=== PATIENT | female | born 1960 | race Caucasian/White ===

== ENCOUNTER 2017-12-10 18:31 | Inpatient (IN) ==
[2017-12-10] MEDS ORDERED: ONDANSETRON 4 MG/2 ML VIAL ONE (19:24)
[2017-12-10] MEDS ORDERED: ASPIRIN 325 MG TABLET PO STA (19:39)
[2017-12-10] MEDS ORDERED: SODIUM CHLORIDE 0.9% 500 ML IV STA (19:39)
[2017-12-10] MEDS ORDERED: ASPIRIN 325 MG TABLET ONE (19:47)
[2017-12-10 19:49] LABS: Basophils # 0.2 10*3/uL (0.0-0.2); Basophils % 0.8 % (0.0-0.8); Eosinophils # 1.3 10*3/uL (0.0-0.87); Eosinophils % 7.3 % (0.00-10.9); Hematocrit 42.7 VOL% (35.7-47.0); Hemoglobin 13.7 GM/DL (12.0-16.0); Immature Granulocytes % 0.6 %; Immature Granulocytes Absolute 0.11 #; Lymphocytes # 6.8 10*3/uL (1.4-4.0); Lymphocytes % 38.3 % (21.3-54.2); Mean Corpuscular HGB Conc 32.1 GM/DL (32-36); Mean Corpuscular Hemoglobin 29 PG (27-34); Mean Corpuscular Volume 88.8 FL (87-102); Mean Platelet Volume 11.4 FL (9.6-12.0); Monocytes # 1.1 10*3/uL (0.11-0.8); Monocytes % 6.2 % (1.7-12.7); Neutrophils # 8.3 10*3/uL (1.4-7.4); Neutrophils % 46.8 % (38.7-73.9); Platelet Count 324 T/CUMM (130-400); Red Blood Count 4.81 MC/CUMM (3.8-5.5); Red Cell Distribution Width 14.1 % (9.3-17.3); White Blood Count 17.7 T/CUMM (4-12)
[2017-12-10 19:55] LABS: Partial Thromboplastin Time 23.1 SECS (0-40)
[2017-12-10] MEDS ORDERED: ONDANSETRON 4 MG/2 ML VIAL IV STA (19:55)
[2017-12-10 20:07] LABS: Alanine Aminotransferase 12 U/L (13-56); Alkaline Phosphatase 101 U/L (45-117); Aspartate Amino Transferase 26 U/L (0-37); Bilirubin,Total < 0.39 MG/DL (0.2-1.0); Blood Urea Nitrogen 21 MG/DL (7-18); Calcium 9.5 MG/DL (8.5-10.1); Glucose 131 MG/DL (74-106); Osmolality,Calculated 290.8 MOS/KG (273-304); Potassium 3.5 MMOL/L (3.5-5.1); Sodium 144 MMOL/L (136-145); Total Protein 7.6 G/DL (6.4-8.3)
[2017-12-10 20:09] LABS: Troponin I Only 0.072 NG/ML (0.00-0.045)
[2017-12-10] MEDS ORDERED: LABETALOL 20 MG/4 ML SYRINGE IV PRN (21:15)
[2017-12-10] MEDS ORDERED: DEXTROSE 50% 25 GM/50 ML VIAL IV PRN (21:15)
[2017-12-10] MEDS ORDERED: GLUCAGON 1 MG VIAL IM PRN (21:15)
[2017-12-10] MEDS ORDERED: ENOXAPARIN 40 MG/0.4 ML SYRINGE SUBCUT SCH (21:30)
[2017-12-10 21:54] LABS: Apearance,Urine CLEAR (Clear); Bilirubin,Urine Negative (Negative); Blood, Urine Negative (Negative); Glucose,Urine (UA) >=500 mg/dL (Negative); Hyaline Casts,Urine 1 /LPF (0-3); Ketones,Urine 20 mg/dL (Negative); Mucus,Urine Occasional /LPF (Occasional); Nitrite,Urine Negative (Negative); Protein,Urine Negative; RBC,Urine 1 /HPF (0-4); Squamous Epithelial Cell,Urine Occasional /HPF (0-10); Urine Color Yellow (Yellow); Urine Specific Gravity 1.013 (1.001-1.035); Urine Urobilinogen < 2.0 EU/DL (0.2-1.0); WBC,Urine 3 /HPF (0-6)
[2017-12-10 22:01] LABS: Barbiturates Screen,Urine Negative (Negative); Benzodiazepines Screen,Urine Negative (Negative); Cannabinoid Screen,Urine Negative (Negative); Opiate Screen,Urine Negative (Negative); Phencyclidine Screen,Urine Negative (Negative)
[2017-12-10] MEDS: SODIUM CHLORIDE 0.9% 1,000 ML IV SCH (23:48)
[2017-12-11] MEDS: ACETAMINOPHEN 325 MG TABLET PO PRN ×4 (00:46→14:53)
[2017-12-11 05:11] LABS: Basophils # 0.1 10*3/uL (0.0-0.2); Basophils % 0.5 % (0.0-0.8); Eosinophils # 0.1 10*3/uL (0.0-0.87); Eosinophils % 0.4 % (0.00-10.9); Hemoglobin 12.6 GM/DL (12.0-16.0); Immature Granulocytes % 0.6 %; Immature Granulocytes Absolute 0.08 #; Lymphocytes # 2.2 10*3/uL (1.4-4.0); Lymphocytes % 17.3 % (21.3-54.2); Mean Corpuscular HGB Conc 32.3 GM/DL (32-36); Mean Corpuscular Hemoglobin 29 PG (27-34); Mean Corpuscular Volume 88.4 FL (87-102); Mean Platelet Volume 11.4 FL (9.6-12.0); Monocytes # 0.6 10*3/uL (0.11-0.8); Monocytes % 4.3 % (1.7-12.7); Neutrophils # 9.8 10*3/uL (1.4-7.4); Neutrophils % 76.9 % (38.7-73.9); Platelet Count 252 T/CUMM (130-400); Red Blood Count 4.41 MC/CUMM (3.8-5.5); Red Cell Distribution Width 13.8 % (9.3-17.3); White Blood Count 12.7 T/CUMM (4-12)
[2017-12-11 06:00] LABS: Calcium 9.1 MG/DL (8.5-10.1); Potassium 4.2 MMOL/L (3.5-5.1)
[2017-12-11 06:22] LABS: Risk Ratio 4.71; VLDL CHOLESTEROL 13.2 MG/DL
[2017-12-11] MEDS: INSULIN REGULAR 100 UNIT/ML SUBCUT SCH ×4 (08:23→20:13)
[2017-12-11] MEDS: ASPIRIN 325 MG TABLET PO SCH (09:56)
[2017-12-11] MEDS ORDERED: ONDANSETRON 4 MG/2 ML VIAL IV ONE (12:44)
[2017-12-11] MEDS: INSULIN GLARGINE 100 UNIT/ML SUBCUT SCH (14:48)
[2017-12-11] MEDS: SODIUM CHLORIDE 0.9% 1,000 ML IV SCH (20:12)
[2017-12-11] MEDS ORDERED: CYCLOBENZAPRINE 10 MG TABLET PO SCH (21:00)
[2017-12-11] MEDS ORDERED: MONTELUKAST 10 MG TABLET PO SCH (21:00)
[2017-12-11] MEDS ORDERED: ESCITALOPRAM 10 MG TABLET PO SCH (21:00)
[2017-12-12] MEDS ORDERED: ONDANSETRON 4 MG/2 ML VIAL IV PRN (03:25)
[2017-12-12] MEDS ORDERED: LEVOTHYROXINE 112 MCG TABLET PO SCH (06:30)
[2017-12-12] MEDS: INSULIN REGULAR 100 UNIT/ML SUBCUT SCH ×3 (08:04→16:33)
[2017-12-12] MEDS ORDERED: CLOPIDOGREL 75 MG TABLET PO SCH (09:00)
[2017-12-12] MEDS ORDERED: ATORVASTATIN 40 MG TABLET PO SCH (09:00)
[2017-12-12] MEDS ORDERED: TISSUE ADHESIVE 1 EACH APPLICATOR TOP ONE (09:17)
[2017-12-12] MEDS ORDERED: LIDOCAINE 1%/EPI INJ 20 ML VIAL ONE (09:17)
[2017-12-12] MEDS ORDERED: MIDAZOLAM 2 MG/2 ML VIAL IV ONE (10:45)
[2017-12-12] MEDS ORDERED: fentaNYL 100 MCG/2 ML VIAL ONE (10:45)
[2017-12-12] MEDS ORDERED: MIDAZOLAM 10 MG/2 ML VIAL ONE (10:45)
[2017-12-12] MEDS ORDERED: fentaNYL 100 MCG/2 ML VIAL IV ONE (10:45)
[2017-12-12] MEDS ORDERED: LIDOCAINE 1%/EPI INJ 20 ML VIAL MISC INJ ONE (10:55)
[2017-12-12] MEDS: ASPIRIN 325 MG TABLET PO SCH (12:47)
[2017-12-12] MEDS: INSULIN GLARGINE 100 UNIT/ML SUBCUT SCH (12:47)
[2017-12-12] MEDS ORDERED: DEXTROSE 50% 25 GM/50 ML VIAL IV PRN (15:08)
[2017-12-12] MEDS ORDERED: GLUCAGON 1 MG VIAL IM PRN (15:08)
[2017-12-12 16:33] VITALS: BP 110/66
== END 2017-12-12 17:29 | disposition home or self-care (01) | DRG 41 ==
LOC: N.ED 18:31 → N.EDINP 21:15 → N.2E 21:45
PROVIDERS: ADMIT Internal Medicine; ATTEND Internal Medicine

== ENCOUNTER 2020-01-18 12:48 | Inpatient (IN) ==
[2020-01-18] MEDS ORDERED: SODIUM CHLORIDE 0.9% 1,000 ML IV STA (13:25)
[2020-01-18] MEDS ORDERED: ONDANSETRON 4 MG/2 ML VIAL IV ONE (13:25)
[2020-01-18] MEDS ORDERED: PANTOPRAZOLE 40 MG VIAL IV STA (13:26)
[2020-01-18 13:35] LABS: Apearance,Urine CLEAR (Clear); Basophils % 0.3 % (0.0-0.8); Bilirubin,Urine Negative (Negative); Blood, Urine Negative (Negative); Eosinophils % 0.1 % (0.00-10.9); Glucose,Urine (UA) Negative (Negative); Hematocrit 23.7 VOL% (35.7-47.0); Hemoglobin 7.4 GM/DL (12.0-16.0); Immature Granulocytes % 0.6 %; Immature Granulocytes Absolute 0.07 #; Ketones,Urine 5 mg/dL (Negative); Lymphocytes # 2.2 10*3/uL (1.4-4.0); Lymphocytes % 18.6 % (21.3-54.2); Mean Corpuscular HGB Conc 31.2 GM/DL (32-36); Mean Corpuscular Volume 89.4 FL (87-102); Mean Platelet Volume 11.6 FL (9.6-12.0); Monocytes % 6.9 % (1.7-12.7); Mucus,Urine Occasional /LPF (Occasional); Neutrophils % 73.5 % (38.7-73.9); Nitrite,Urine Negative (Negative); Platelet Count 264 T/CUMM (130-400); Protein,Urine Negative; Red Blood Count 2.65 MC/CUMM (3.8-5.5); Red Cell Distribution Width 13.6 % (9.3-17.3); Squamous Epithelial Cell,Urine Occasional /HPF (0-10); Urine Color Yellow (Yellow); Urine Urobilinogen < 2.0 EU/DL (0.2-1.0); White Blood Count 11.7 T/CUMM (4-12)
[2020-01-18 13:47] LABS: INR 1.2; PT Patient Result 12.3 SECS (9.8-11.9)
[2020-01-18 13:57] LABS: Alanine Aminotransferase 13 U/L (13-56); Albumin 2.7 G/DL (3.4-5.0); Alkaline Phosphatase 76 U/L (45-117); Aspartate Amino Transferase 12 U/L (0-37); Bilirubin,Total < 0.39 MG/DL (0.2-1.0); Blood Urea Nitrogen 65 MG/DL (7-18); Calcium 7.9 MG/DL (8.5-10.1); Estimated Glom Filtration Rate 63 ML/MIN; Glucose 333 MG/DL (74-106); Osmolality,Calculated 312.3 MOS/KG (273-304); Total Protein 5.1 G/DL (6.4-8.3)
[2020-01-18] MEDS ORDERED: PANTOPRAZOLE INJ 200 MG in SODIUM CHLORIDE 0.9% 250 ML IV SCH (14:30)
[2020-01-18] MEDS ORDERED: SODIUM CHLORIDE 0.9% 1,000 ML IV PRN (14:49)
[2020-01-18] MEDS ORDERED: ONDANSETRON 4 MG/2 ML VIAL IV PRN (15:37)
[2020-01-18] MEDS ORDERED: PROMETHAZINE 25 MG/1 ML VIAL IM PRN (15:37)
[2020-01-18] MEDS: SODIUM CHLORIDE 0.9% 1,000 ML IV SCH (17:08)
[2020-01-18] MEDS ORDERED: PHENYLEPHRINE DRIP 40 MG/250 ML PREMIX IV PRN (17:09)
[2020-01-18] MEDS: INSULIN LISPRO 100 UNIT/ML SUBCUT SCH (20:16)
[2020-01-18] MEDS: DOCUSATE SODIUM 100 MG CAPSULE PO SCH (20:16)
[2020-01-18] MEDS: MONTELUKAST 10 MG TABLET PO SCH (20:16)
[2020-01-19 01:08] LABS: Basophils # 0.1 10*3/uL (0.0-0.2); Basophils % 0.3 % (0.0-0.8); Eosinophils % 0.1 % (0.00-10.9); Hematocrit 30.1 VOL% (35.7-47.0); Hemoglobin 9.9 GM/DL (12.0-16.0); Immature Granulocytes % 0.5 %; Immature Granulocytes Absolute 0.08 #; Lymphocytes # 2.8 10*3/uL (1.4-4.0); Lymphocytes % 15.5 % (21.3-54.2); Mean Corpuscular HGB Conc 32.9 GM/DL (32-36); Mean Platelet Volume 11.3 FL (9.6-12.0); Monocytes % 8.8 % (1.7-12.7); NRBC # 0.02 10*3/uL; Neutrophils % 74.8 % (38.7-73.9); Platelet Count 208 T/CUMM (130-400); Red Blood Count 3.46 MC/CUMM (3.8-5.5); Red Cell Distribution Width 14.1 % (9.3-17.3); White Blood Count 17.8 T/CUMM (4-12)
[2020-01-19 01:33] LABS: Albumin 2.9 G/DL (3.4-5.0); Bilirubin,Total 0.4 MG/DL (0.2-1.0); Calcium 8.3 MG/DL (8.5-10.1); Osmolality,Calculated 303.6 MOS/KG (273-304); Total Protein 5.4 G/DL (6.4-8.3)
[2020-01-19 01:39] LABS: Risk Ratio 3.28; Thyroid Stimulating Hormone 0.118 uIU/ml (0.358-3.74); VLDL CHOLESTEROL 20.2 MG/DL
[2020-01-19] MEDS: SODIUM CHLORIDE 0.9% 1,000 ML IV SCH ×4 (03:29→19:50)
[2020-01-19] MEDS: ATORVASTATIN 40 MG TABLET PO SCH (08:13)
[2020-01-19] MEDS: FLUoxetine 20 MG CAPSULE PO SCH (08:13)
[2020-01-19] MEDS: buPROPion XL 150 MG TABLET PO SCH (08:13)
[2020-01-19] MEDS: LEVOTHYROXINE 100 MCG TABLET PO SCH (08:13)
[2020-01-19] MEDS: DOCUSATE SODIUM 100 MG CAPSULE PO SCH ×2 (08:13→21:06)
[2020-01-19] MEDS: INSULIN LISPRO 100 UNIT/ML SUBCUT SCH ×4 (08:13→21:10)
[2020-01-19] MEDS ORDERED: PANTOPRAZOLE 40 MG TABLET PO SCH (09:00)
[2020-01-19] MEDS: PANTOPRAZOLE 40 MG TABLET PO SCH (21:06)
[2020-01-19] MEDS: ACETAMINOPHEN 325 MG TABLET PO PRN (21:06)
[2020-01-19] MEDS: MONTELUKAST 10 MG TABLET PO SCH (21:06)
[2020-01-20] MEDS: SODIUM CHLORIDE 0.9% 1,000 ML IV SCH ×3 (03:34→16:34)
[2020-01-20 05:55] LABS: Albumin 2.5 G/DL (3.4-5.0); Bilirubin,Total 0.8 MG/DL (0.2-1.0); Calcium 7.9 MG/DL (8.5-10.1); Osmolality,Calculated 290.6 MOS/KG (273-304); Total Protein 4.8 G/DL (6.4-8.3)
[2020-01-20 06:56] LABS: Basophils % 0.4 % (0.0-0.8); Eosinophils # 0.4 10*3/uL (0.0-0.87); Eosinophils % 4.2 % (0.00-10.9); Hematocrit 23.8 VOL% (35.7-47.0); Immature Granulocytes % 0.6 %; Immature Granulocytes Absolute 0.05 #; Lymphocytes # 2.6 10*3/uL (1.4-4.0); Lymphocytes % 29.2 % (21.3-54.2); Mean Corpuscular HGB Conc 32.4 GM/DL (32-36); Mean Corpuscular Volume 90.2 FL (87-102); Mean Platelet Volume 11.3 FL (9.6-12.0); Monocytes % 8.7 % (1.7-12.7); Neutrophils % 56.9 % (38.7-73.9); Red Cell Distribution Width 14.6 % (9.3-17.3)
[2020-01-20 06:58] LABS: Hemoglobin 7.7 GM/DL (12.0-16.0); Platelet Count 153 T/CUMM (130-400); Red Blood Count 2.64 MC/CUMM (3.8-5.5)
[2020-01-20] MEDS: INSULIN LISPRO 100 UNIT/ML SUBCUT SCH ×4 (07:58→21:21)
[2020-01-20] MEDS: DOCUSATE SODIUM 100 MG CAPSULE PO SCH ×2 (08:03→21:21)
[2020-01-20] MEDS: ATORVASTATIN 40 MG TABLET PO SCH (08:03)
[2020-01-20] MEDS: buPROPion XL 150 MG TABLET PO SCH (08:04)
[2020-01-20] MEDS: LEVOTHYROXINE 100 MCG TABLET PO SCH (08:04)
[2020-01-20] MEDS: FLUoxetine 20 MG CAPSULE PO SCH (08:04)
[2020-01-20] MEDS: PANTOPRAZOLE 40 MG TABLET PO SCH ×2 (08:04→21:18)
[2020-01-20 13:23] LABS: Hematocrit 23.3 VOL% (35.7-47.0); Hemoglobin 7.7 GM/DL (12.0-16.0)
[2020-01-20] MEDS: MONTELUKAST 10 MG TABLET PO SCH (21:17)
[2020-01-20] MEDS: ACETAMINOPHEN 325 MG TABLET PO PRN (21:18)
[2020-01-21 05:07] LABS: Basophils % 0.4 % (0.0-0.8); Eosinophils # 0.3 10*3/uL (0.0-0.87); Eosinophils % 5.5 % (0.00-10.9); Hematocrit 24.5 VOL% (35.7-47.0); Immature Granulocytes % 0.4 %; Immature Granulocytes Absolute 0.02 #; Lymphocytes # 0.8 10*3/uL (1.4-4.0); Lymphocytes % 14.8 % (21.3-54.2); Mean Corpuscular HGB Conc 32.7 GM/DL (32-36); Mean Corpuscular Volume 86.9 FL (87-102); Mean Platelet Volume 11.4 FL (9.6-12.0); Monocytes % 11.1 % (1.7-12.7); NRBC # 0.02 10*3/uL; Neutrophils % 67.8 % (38.7-73.9); Platelet Count 139 T/CUMM (130-400); Red Blood Count 2.82 MC/CUMM (3.8-5.5); Red Cell Distribution Width 14.6 % (9.3-17.3); White Blood Count 5.1 T/CUMM (4-12)
[2020-01-21 05:36] LABS: Albumin 2.8 G/DL (3.4-5.0); Bilirubin,Total 0.7 MG/DL (0.2-1.0); Calcium 8.8 MG/DL (8.5-10.1); Osmolality,Calculated 283.8 MOS/KG (273-304); Total Protein 5.6 G/DL (6.4-8.3)
[2020-01-21] MEDS ORDERED: DEXTROSE 10% 250 ML BAG IV PRN (07:38)
[2020-01-21] MEDS ORDERED: GLUCAGON 1 MG VIAL IM PRN (07:38)
[2020-01-21] MEDS: INSULIN LISPRO 100 UNIT/ML SUBCUT SCH (07:46)
[2020-01-21 07:48] VITALS: BP 134/77
[2020-01-21] MEDS ORDERED: GLIMEPIRIDE 2 MG TABLET PO SCH (08:00)
[2020-01-21] MEDS: FLUoxetine 20 MG CAPSULE PO SCH (08:30)
[2020-01-21] MEDS: ATORVASTATIN 40 MG TABLET PO SCH (08:30)
[2020-01-21] MEDS: LEVOTHYROXINE 100 MCG TABLET PO SCH (08:30)
[2020-01-21] MEDS: buPROPion XL 150 MG TABLET PO SCH (08:30)
[2020-01-21] MEDS: PANTOPRAZOLE 40 MG TABLET PO SCH (08:31)
[2020-01-21] MEDS: DOCUSATE SODIUM 100 MG CAPSULE PO SCH (08:31)
[2020-01-21] MEDS ORDERED: POTASSIUM CHLORIDE 10 MEQ TABLET PO SCH (09:00)
[2020-01-21] MEDS ORDERED: atenoloL 25 MG TABLET PO SCH (09:00)
[2020-01-21] MEDS ORDERED: LIDOCAINE 2% 5 ML VIAL ONE (09:00)
[2020-01-21] MEDS ORDERED: metFORMIN 500 MG TABLET PO SCH (09:00)
[2020-01-21] MEDS ORDERED: propofoL 200 MG/20 ML VIAL IV ONE (09:00)
[2020-01-21] MEDS ORDERED: ESMOLOL 100 MG/10 ML VIAL IV ONE (09:00)
== END 2020-01-21 09:40 | disposition home or self-care (01) | DRG 378 ==
LOC: EDUNIT# → EDBD → N.ED 12:48 → N.EDINP 15:37 → N.CC 16:16 → N.3E 01-19 01:55
PROVIDERS: ADMIT Family Medicine; ATTEND Family Medicine